=== PATIENT | female | born 1960 | race Caucasian/White ===

== ENCOUNTER 2021-08-29 05:09 | Observation (INO) ==
--- NOTE | 2021-08-03 14:33 | PAT Medication Instructions ---
Medication Instructions Date of Service August 03, 2021 Home Medications Medication Instructions Recorded buspirone 5 mg tablet 5 mg PO BID #180 tab 04/19/21 buspirone 5 mg tablet 5 mg PO BID duloxetine 60 mg capsule,delayed release 120 mg PO QAM losartan 100 mg tablet 100 mg PO QAM rosuvastatin 10 mg tablet (Crestor) 10 mg PO QAM DO NOT take the morning of surgery losartan 100 mg tablet 100 mg PO QAM Take morning of surgery With a small sip of water, OTHERWISE NOTHING TO EAT OR DRINK AFTER MIDNIGHT: buspirone 5 mg tablet 5 mg PO BID duloxetine 60 mg capsule,delayed release 120 mg PO QAM rosuvastatin 10 mg tablet (Crestor) 10 mg PO QAM Take evening before surgery buspirone 5 mg tablet 5 mg PO BID Other Notes If you have any questions please call us at [phone] or [phone] or [phone] or [phone]
--- NOTE | 2021-08-08 10:02 | Anesthesiology Consultation ---
Date of Service August 08, 2021 Assessment & Plan (1) Encounter for pre-operative examination: - COVID screening: Per assessment on 08/08: No known COVID-19 positive contacts or current COVID-19 related symptoms. Travel screen negative. Patient vaccinated. Surgeon arranging preop COVID testing. Awaiting results. - S/P Colonoscopy (12/30/20): MAC at [facility] - Patient acceptable risk for surgery pending surgeon-ordered PCP clearance (scheduled 08/10; [facility]). Chart Review Chart Review: Patient seen in Pre Admission Testing Teaching & Discussion Pre-Anesthesia Teaching/Discussion Notes: Instructed NPO after midnight before surgery,except medications with 15 cc of water. Medication instructions provided according to the PAT guidelines. History Surgery Operation Date: 08/29/21 07:00 Proposed Procedures p Right Total Knee Arthroplasty - Efra Sow MD Height/Weight Height: 5 ft 5 in Weight: 128.5 kg Allergies Allergy/AdvReac Type Severity Reaction Status Date / Time No Known Allergies Allergy Verified 08/03/21 12:51 Medications Home Medications Medication Instructions Recorded Confirmed Last Taken buspirone 5 mg tablet 5 mg PO BID #180 tab 04/19/21 08/03/21 Unknown duloxetine 60 mg capsule,delayed 120 mg PO QAM 08/03/21 08/03/21 Unknown release losartan 100 mg tablet 100 mg PO QAM 08/03/21 08/03/21 Unknown rosuvastatin 10 mg tablet (Crestor) 10 mg PO QAM 08/03/21 08/03/21 Unknown Past Medical History Medical History Anxiety and depression Dry eye syndrome GERD (gastroesophageal reflux disease) Hyperlipidemia Hypertension Morbid obesity with BMI of 45.0-49.9, adult Osteoarthritis Exercise / Class Metabolic Activity II 4-5 Yardwork/Stairs/Walk up hill (one FS (no CP, no SOB)) Past Family History Family History Father Family hx of colon cancer Other No family history of adverse response to anesthesia Past Surgical History Surgical History History of anesthesia reaction Awareness with remote colonoscopy History of cholecystectomy History of colonoscopy Colonoscopy (12/30/20): MAC at [facility] History of esophagogastroduodenoscopy (EGD) History of hysterectomy History of surgical procedure on eye proper using laser History of tonsillectomy and adenoidectomy History of tooth extraction History of total knee replacement LEFT Past Anesthesia History No Family Hx of Anesthesia Complications and Other (Awareness with remote colonoscopy) History of PONV No Hx of PONV and No Hx of Motion Sickness Social History Smoking Status: Never smoker Do You Dip or Chew Tobacco: No Hx Alcohol Use: Yes alcohol intake frequency: holidays/special occasions only Hx Substance Use: No substance use type: does not use Review of Systems Patient denies chest pain, shortness of breath, dyspnea on exertion, fever, chills, cough, wheezing, palpitations. Physical Exam Vital Signs VITALS BP 142/79 P 83 TEMP 98.9 SP02 96%RA RESP 16 PHYSICAL Full cervical extension range of motion. Full TMJ range of motion. TMD 3.5 finger breaths (difficult to palpate) Mallampati Score 4 (small oral opening) Dentition: intact Lungs: clear throughout to auscultation Cardiac: regular rate and rhythm, no murmurs noted Spine: normal Carotid arteries: negative bruit Extremities: no edema Short, thick neck Lab Results Anesthesia Preop Results Results Anesthesia Widget: WBC 6.84 K/uL (4.8-10.8) 08/08/21 Hgb 13.7 g/dL (12.0-16.0) 08/08/21 Hct 39.9 % (37-47) 08/08/21 Plt 198 K/uL (130-400) 08/08/21 Na 138 mmol/L (136-145) 08/08/21 K 4.0 mmol/L (3.5-5.1) 08/08/21 Cl 105 mmol/L (98-107) 08/08/21 CO2 27 mmol/L (21-32) 08/08/21 BUN 19 mg/dl (6-23) 08/08/21 Creat 0.76 mg/dl (0.6-1.2) 08/08/21 Glucose Level 86 mg/dl (70-99(Fasting)) 08/08/21 PT 10.3 Seconds (9.0-12.0) 08/08/21 PTT 25.7 Seconds (21.0-31.0) 08/08/21 INR 1.0 (0.9-1.1) 08/08/21 Blood Type O Positive 08/08/21 Antibody Screen NEGATIVE 08/08/21 Pre Admission Testing Addendum Electrocardiogram Date: 08/08/21 Findings: + NSR @ (76) Chest X-Ray Date: 08/08/21 Chart Review Patient seen in Pre Admission Testing Testing Electrocardiogram Date: 08/08/21 Findings: + NSR @ (76) Chest X-Ray Date: 08/08/21 FINDINGS: PA and lateral chest radiographs are compared to study dated 08/16/2018. The PA view is degraded by apical lordotic positioning. The cardiomediastinal silhouette is top normal for projection. The lungs and pleural spaces are clear. There is no pneumothorax. The skeletal structures appear osteopenic. The bony thorax appears intact. Cholecystectomy clips are noted in the right upper quadrant. IMPRESSION: No active disease in the chest.
[2021-08-29] MEDS ORDERED: LR 500ML BOLUS, THEN 15ML/HR IV SCH (06:00)
[2021-08-29] MEDS ORDERED: ROPIVACAINE 0.5% HCL/PF 150 MG, BUPIVACAINE 0.75% MPF 20 ML, EPINEPHrine 0.15 MG, Ketor... INFIL SCH (06:00)
[2021-08-29] MEDS ORDERED: cloNIDine HCL 0.1 MG/24 HR TRANSDERM SYS TD SCH (06:00)
[2021-08-29] MEDS ORDERED: LR 60ML/HR IV SCH (06:00)
[2021-08-29] MEDS ORDERED: oxyCODONE HCL 10 MG TABCR (OxyCONTIN) PO SCH (06:00)
[2021-08-29] MEDS ORDERED: TRANEXAMIC ACID 1,000 MG **IV Intra-op IV SCH (06:00)
[2021-08-29] MEDS ORDERED: dexAMETHasone 4 MG TAB PO SCH (06:00)
[2021-08-29] MEDS ORDERED: FAMOTIDINE 20 MG TAB PO SCH (06:00)
[2021-08-29] MEDS ORDERED: GABAPENTIN 600 MG DOSE PO SCH (06:00)
[2021-08-29] MEDS ORDERED: ACETAMINOPHEN 500 MG TAB PO SCH (06:00)
[2021-08-29] MEDS ORDERED: traMADol HCL 50 MG TABLET PO SCH (06:00)
[2021-08-29] MEDS ORDERED: METOCLOPRAMIDE HCL 10 MG TABLET PO SCH (06:00)
[2021-08-29] MEDS ORDERED: CeleBREX 200 MG CAP PO SCH (06:00)
[2021-08-29] MEDS ORDERED: TRANEXAMIC ACID 1,000 MG **IV Pre-op IV SCH (06:00)
[2021-08-29] MEDS ORDERED: BUPIVACAINE 0.5 % 5 MG/1 ML MPF 30ML VIAL ONE (06:26)
[2021-08-29] MEDS ORDERED: ROPIVACAINE 0.5% 5 MG/ML 30 ML VIAL ONE (06:26)
[2021-08-29] MEDS ORDERED: EPINEPHrine INJ 1 MG/ML AMP ONE (06:26)
[2021-08-29] MEDS ORDERED: ORTHO JOINT ANESTHETIC ONE (06:34)
[2021-08-29] MEDS ORDERED: fentaNYL citrate 100 MCG/2 ML VIAL ONE (06:46)
[2021-08-29] MEDS ORDERED: MIDAZOLAM HCL 1 MG/ML 2ML VIAL ONE (06:47)
[2021-08-29] MEDS ORDERED: PHENYLEPHRINE HCL 10 MG/ML VIAL ONE (06:48)
[2021-08-29] MEDS ORDERED: ePHEDrine sulfate 50 MG/ML AMP ONE (06:48)
--- NOTE | 2021-08-29 06:48 | History & Physical Bridge Note ---
Date of Service August 29, 2021 History & Physical Bridge Note I have examined the patient, reviewed the History & Physical and in the interval since the performance of the History & Physical I have noted the following changes of clinical significance: no changes noted
[2021-08-29] MEDS ORDERED: PROPOFOL IV EMULSION 10 MG/ML 20 ML VIAL IV ONE (07:58)
[2021-08-29] MEDS ORDERED: FLUMAZENIL 0.1 MG/1 ML 10 ML VIAL IV PRN (10:19)
[2021-08-29] MEDS ORDERED: ePHEDrine sulfate 50 MG/ML AMP IV PRN (10:19)
[2021-08-29] MEDS ORDERED: PROMETHAZINE HCL 12.5 MG in SODIUM CHLORIDE 0.9% 50 ML IV PRN (10:19)
[2021-08-29] MEDS ORDERED: ONDANSETRON INJ 2 MG/ML 2 ML VIAL IV PRN ×2 (10:19→11:56)
[2021-08-29] MEDS ORDERED: NALOXONE HCL 0.4 MG/1 ML VIAL/CARP IV PRN ×2 (10:19→11:56)
[2021-08-29] MEDS ORDERED: ATROPINE SULFATE 0.1 MG/ML 10ML SYR IV PRN (10:19)
--- NOTE | 2021-08-29 10:41 | Operative Report ---
Post Operative Report Pre & Post Diagnosis Operation Date: 08/29/21 07:00 Pre-Op Diagnosis: Right Knee Degenerative Joint Disease Post-Op Diagnosis: Right Knee Degenerative Joint Disease I identified the patient and participated in the time-out.: Yes Procedure Operation Date: 08/29/21 07:00 Actual Procedures p Right Total Knee Arthroplasty(Right) - Efra Sow MD Surgeon Jennifer Sow Drop Forger Adarsh Stovall MD. Caity SILVA Estimated Blood Loss 25 Findings Consistent with Post-Op Diagnosis Consistent with post op diagnosis Specimens No specimens Description of Procedure I participated in prepping dressing and assisted Dr. Sow during the procedure. Please see Dr. Sow note. I attest to the content of the Intraoperative Record and any orders documented therein. Any exceptions are noted below.
--- NOTE | 2021-08-29 10:43 | Operative Report ---
Post Operative Report Pre & Post Diagnosis Operation Date: 08/29/21 07:00 Pre-Op Diagnosis: Right Knee Degenerative Joint Disease Post-Op Diagnosis: Right Knee Degenerative Joint Disease I identified the patient and participated in the time-out.: Yes Procedure Operation Date: 08/29/21 07:00 Actual Procedures p Right Total Knee Arthroplasty(Right) - Efra Sow MD Surgeon Efra Sow MD Disability Specialist Sugey Allen physicians personal care assistant. Manny Stovall fellow. Estimated Blood Loss 25 Findings Consistent with Post-Op Diagnosis Specimens Resected bone and soft tissue Drains None Anesthesia Type MAC Spinal Regional Complications none Disposition Accompanied Patient To Recovery: No Disposition: Recovery Room Indications Joy is 61. She has right knee pain secondary to arthritis refractory to nonsurgical methods of management and she is elected to proceed with surgery. She is status post a successful surgery on the opposite limb. Description of Procedure Informed consent obtained. Patient identified. She identified the operative site as the right knee. I marked with my initials. A preoperative surgical timeout was performed. A preop dose of IV antibiotics was given. She was taken to the operating room positioned supine on the operating room table and the anesthetic had already been administered. A tourniquet was applied to the right thigh padded post under the right calf. A bump under the right hip. The leg was prescribed prepped and draped in usual sterile fashion. She had had a little cut underneath her little finger toenail from clipping her nails too short. She also had to 2 mm eschars over the junction of the middle and distal third of her leg possibly from her cat scratching her. These look like terminally healed scratches with minimal eschar no inflammation or erythema no drainage. I think it is reasonable to proceed as these will be excluded from the field and the looked benign in appearance. TXA given. DVT prophylaxis with impulse foot pumps and postoperatively Lovenox. Exam under anesthesia showed range of motion 0/7/approximate 115. She had trace MCL laxity and no LCL laxity except for mid position where she had 1+ LCL laxity. No effusion. Limb exsanguinated with the Esmarch. Tourniquet inflated 275 mmHg. A midline longitudinal incision was made of about 20 to 5 cm in length. Electrocautery was utilized down to subcutaneous tissues. The extensor mechanism was exposed and a small medial flap was elevated. A medial parapatellar arthrotomy was performed. Osteophytes throughout the knee were removed. There were grade 3 changes on the patella with osteophytes. Grade 4 changes in the medial compartment on both sides of the joint with large osteophytes which were removed. The medial meniscus was deficient. The lateral compartment looked normal. Cruciate ligaments were resected. The synovial reflection in the lateral gutter was divided. The retropatellar fat pad was resected and an extensile medial release was performed. Soft tissue on the anterior aspect the distal femur was excised. The knee was easily and carefully flexed and the tibia was subluxated. Digital Marketing Intern hole was drilled in front of the lateral tibial spine and intramedullary alignment myla was inserted. This was set to resect 10 mm off the lateral side corresponding to a 2 to 3 mm cut medially. This was pinned in the place. A 0 degree cutting block aligned with the tibial tubercle. The knee was placed into full extension and the alignment was assessed with the extra medullary alignment myla and found to be in slight valgus. I then used a 2 degree cutting block to correct this and reassess the alignment which showed good slope and the intersec tion of the second ray with bisection of the ankle joint on the longitudinal axis. This cut was then made carefully protecting the patellar tendon. The tibia was sized to a 3. A agricultural aircraft pilot hole was drilled in the distal femur followed by the insertion of the distal femoral cutting guide. This was set 7 degrees valgus based upon preoperative templating for the right knee and a 14 mm cut because of the preoperative flexion contracture. This cut was made protecting the collateral ligaments. Whitesides line and Atransipar condylar axis were marked out. The sizing block for the distal femur was applied and sized to a 3. The external rotation drill holes were made. The collateral ligaments were then protected and the size 3 anterior down cutting block was applied and the anterior posterior and chamfer cuts were then made. Osteophytes in the back the knee were removed. The extension gap was a symmetric 10 but the flexion gap was tight medially. I went ahead and did more posterior medial release releasing the semimobile member gnosis tendon and the gastroc as well as the posterior capsule and resecting posterior osteophytes and this allowed introduction of the size 10 spacer with a symmetrical flexion gap. The box cutting guide was applied lateralized pinned in place cut and rasped. The size 3 femur was applied. The tibia was prepared with the keel and punch followed by insertion of the 10 mm spacer. The knee was able to be fully extended and had no laxity to varus and valgus stress. There is no laxity at 90. And 30 degrees flexion there was no medial laxity but 1+ lateral laxity which was physiologic. The patella was measured to be 24 mm in thickness. A 38 patella was selected. The guide was set to preserve 16 mm of bone. The cutting guide was applied to cut was made. The patella was measured to be 15 mm in thickness. The paddle was distal lysed and medialized aligned with the trochlea and the lug holes were drilled. Patellar tracking was fine with no hands technique. The components removed from the knee and the canals were plugged. Ortho joint mix injected into the back the knee except for the area of the peroneal nerve. Copious irrigation was performed pulsatile lavage to prepare the bony surfaces. 2 bags of Simplex P cement were then mixed and then while in a doughy state the components were cemented into place femur tibia and patella. Smears were placed on the posterior condyles. The knee was held in full extension with a trial spacer until the cement hardened. The tourniquet was then let down at about 125 minutes. Meticulous hemostasis was performed. The rest of the Ortho joint mix was injected. The extraneous cement was removed. The after mentioned laxity profile applied and a 10 mm polywas selected for the final implant. The back the knee was inspected for cement. Previously osteophytes in the back of the knee were removed particularly medially. Bleeding was controlled with electrocautery. There was minimal bleeding. Some extraneous cement was removed. Irrigation was performed copiously and the final implant was inserted. Patellar thickness with the implant was 25 mm. Went ahead and closed the extensor mechanism with interrupted #2 FiberWire above the equator the patella and running and interrupted #1 Vicryl below. The skin was then closed in layers with 0 and 2-0 Vicryl with mari. The leg was c leaned wet and dry sponges. Soft sterile dressing was applied Xeroform 4 x 4's ABD soft wrap and a full-length Marcos wrap with a knee immobilizer. The patient was awakened from anesthesia without difficulty and taken to the recovery room in stable condition. The resected bone and soft tissue were sent for specimen. There were no complications. Counts were correct and blood loss is estimated to be 25 cc. At the conclusion the operation I spoke to patient's niece informed of my findings and discussed the postoperative plan. She will be admitted to the hospital. She will start Lovenox approximately 12 hours postop. Impulse foot pumps for DVT prophylaxis. Weightbearing as tolerated in rehab according to the total knee protocol. [place]ont assisted flexion with extensor mechanism closed was estimated to be 110 degrees. Components inserted were the [employer] PFC Sigma rotating platform knee size 3 posterior stabilized right femur with a size 310 mm thick polyethylene posterior stabilized implant a 38 mm 3 peg oval dome patella and a size 3 mobile-bearing keeled tibial tray. I attest to the content of the Intraoperative Record and any orders documented therein. Any exceptions are noted below.
[2021-08-29] MEDS ORDERED: hydrALAZINE HCL 20 MG/ML VIAL IV PRN (10:45)
[2021-08-29] MEDS: fentaNYL citrate 100 MCG/2 ML VIAL IV PRN ×2 (10:48→10:53)
--- NOTE | 2021-08-29 11:09 | Anesthesiology Progress Note ---
Date of Service August 29, 2021 Anesthesia Post Procedure Vital Signs Vital Signs: Temp Pulse Resp BP Pulse Ox 08/29/21 05:44 36.9 C 93 H 18 193/97 H 96 Pain Intensity Right Knee: Pain Intensity: 3 Transfer of Care Handoff Completed per policy Notes Mental Status: alert / awake / arousable Patient Amnestic to Procedure: Yes Nausea / Vomiting: adequately controlled Pain: adequately controlled Airway Patency, RR, SpO2: stable & adequate BP & HR: stable & adequate Hydration State: stable & adequate Neuraxial Anesthesia: was administered and sensory block is resolving Anesthetic Complications: no major complications apparent
--- NOTE | 2021-08-29 11:34 | XRay Report ---
XR knee RT 1 or 2V routine CLINICAL HISTORY: Surgical Post Op. Status post total knee replacement COMPARISON STUDY: 08/08/2021 TECHNIQUE: 2 right knee views FINDINGS: The patient is status post total knee replacement. The prosthetic components are in anatomi c alignment with no acute abnormality seen. Air is present within the soft tissues from the procedure . Skin mari are seen anteriorly. IMPRESSION: 1. Status post total knee replacement ACT 112: Negative or not required by law. Electronically signed by: Alessio Luo M.D. 08/29/2021 11:32 AM
[2021-08-29] MEDS ORDERED: bisacodyL 10 MG SUPP PR PRN (11:56)
[2021-08-29] MEDS ORDERED: diphenhydrAMINE 50 MG/ML VIAL IV PRN (11:56)
[2021-08-29] MEDS ORDERED: traMADol HCL 50 MG TABLET PO PRN (11:56)
[2021-08-29] MEDS ORDERED: HYDROmorphone INJ 1 MG/ML SYRINGE IV PRN (11:56)
[2021-08-29] MEDS ORDERED: METOCLOPRAMIDE HCL INJ 5 MG/ML 2 ML VIAL IV PRN (11:56)
[2021-08-29] MEDS ORDERED: HYDROmorphone INJ 0.5 MG/0.5 ML SYR IV PRN (11:56)
[2021-08-29] MEDS ORDERED: MAGNESIUM HYDROXIDE SUSP 30 ML UDC PO PRN (11:56)
[2021-08-29] MEDS ORDERED: diphenhydrAMINE Capsule 25 MG CAP PO PRN (11:56)
[2021-08-29] MEDS: CHECK CLONIDINE PATCH PLACEMENT SCH ×4 (12:03→23:19)
[2021-08-29] MEDS: SODIUM CHLORIDE 0.9% 1000ML 1,000 ML IV SCH ×2 (12:07→21:46)
[2021-08-29] MEDS: KETOROLAC 30 MG/ML VIAL IV SCH ×2 (15:01→21:46)
[2021-08-29] MEDS: ACETAMINOPHEN 500 MG TAB PO SCH ×2 (15:02→21:45)
[2021-08-29] MEDS: ceFAZolin 2000MG 2,000 MG/15 ML SYR IV SCH ×2 (15:02→23:18)
--- NOTE | 2021-08-29 17:18 | Orthopedic Progress Note ---
Date of Service August 29, 2021 Assessment & Plan (1) Status post total right knee replacement using cement: Plan: She may be out of bed as tolerated with assistance, with walker and knee immobilizer on right leg. ICe to right knee as needed for pain/swelling. Start Lovenox this evening for DVT prophylaxis. Also doing AV impulse boots and TEDS. Resumed regular home medications. PT/OT to start tomorrow. She's thinking she might need to stay an extra day. She is having some pain - discussed pain medication that is ordered. Keep dressings on right leg at all times. Will discuss findings with Dr. Chaves and re-eval in the AM. Case management for disposition needs. Admission and Anticipated Discharge Date Admission Date: August 29, 2021 Subjective Patient resting in bed, has some pain in right knee. States that Tramadol, Toradol and Tylenol don't seem to be "touching it". She has been out of bed to the bedside commode. She tolerated her lunch, she denies any nausea or vomiting. Denies any numbness or tingling to her right leg. Dressings intact. Physical Exam Musculoskeletal: Dressings intact right lower extremity. Strength 5/5. Distal N/V function normal. Distal pulses 1+. Able to bend her knee and do a straight leg raise. No calf tenderness. Results & Data ([facility]) Vital Signs (Past 12 Hours) Vital Signs Temp Pulse Resp BP Pulse Ox 08/29/21 14:57 36.7 C 89 16 120/73 95 08/29/21 13:48 100 H 16 130/79 95 08/29/21 12:45 36.8 C 98 H 16 142/63 H 96 08/29/21 12:08 36.5 C 85 17 155/75 H 97 08/29/21 11:45 36.9 C 90 17 132/76 96 08/29/21 11:35 90 21 143/76 H 95 08/29/21 11:25 36.3 C L 94 H 16 141/65 H 96 08/29/21 11:15 92 H 21 116/92 97 08/29/21 11:05 89 14 139/79 97 08/29/21 10:55 89 21 140/87 97 08/29/21 10:45 93 H 21 144/79 H 97 08/29/21 10:39 36.5 C 92 H 21 137/70 97 08/29/21 05:44 36.9 C 93 H 18 193/97 H 96 Diagnostic Findings XR knee RT 1 or 2V routine CLINICAL HISTORY: Surgical Post Op. Status post total knee replacement COMPARISON STUDY: 08/08/2021 TECHNIQUE: 2 right knee views FINDINGS: The patient is status post total knee replacement. The prosthetic components are in anatomic alignment with no acute abnormality seen. Air is present within the soft tissues from the procedure. Skin mari are seen anteriorly. IMPRESSION: 1. Status post total knee replacement
[2021-08-29] MEDS: SENNA 8.6 MG TAB PO SCH (20:04)
[2021-08-29] MEDS: DOCUSATE SODIUM 100 MG CAP PO SCH (20:04)
[2021-08-29] MEDS: busPIRone 5 MG TAB PO SCH (20:05)
[2021-08-29] MEDS: ENOXAPARIN INJ 30 MG/0.3 ML SYR SQ SCH (21:45)
[2021-08-29] MEDS: oxyCODONE HCL IR 5 MG TAB (IMMEDIATE RELEASE) PO PRN (21:52)
[2021-08-30] MEDS: KETOROLAC 30 MG/ML VIAL IV SCH ×2 (04:02→10:25)
[2021-08-30] MEDS: oxyCODONE HCL IR 5 MG TAB (IMMEDIATE RELEASE) PO PRN ×5 (04:15→23:32)
[2021-08-30] MEDS: ACETAMINOPHEN 500 MG TAB PO SCH ×3 (06:08→21:03)
[2021-08-30 07:23] LABS: BUN Creatinine Ratio 23.9 (10-20); Calcium 8.1 mg/dl (8.5-10.1); Creatinine Clr Calc Pharmacy 115.9 ml/min; Est GFR (African American) 108.4 ml/min; Est GFR (Non-African American) 93.5 ml/min; Potassium 3.9 mmol/L (3.5-5.1)
[2021-08-30] MEDS ORDERED: dexAMETHasone 4 MG TAB PO SCH (08:00)
[2021-08-30 08:11] LABS: Hemoglobin 10.2 g/dL (12.0-16.0); Mean Corpuscular Hemoglobin 30.5 pg (25-34); Mean Corpuscular Volume 89.8 fL (80-100); Mean Platelet Volume 9.7 fL (7.4-10.4); Platelet Count 178 K/uL (130-400); RDW Coefficient of Variation 13.3 % (11.5-14.5); RDW Standard Deviation 43.1 fL (36.4-46.3); Red Blood Count 3.34 M/uL (4.2-5.4); White Blood Count 8.37 K/uL (4.8-10.8)
[2021-08-30] MEDS: DOCUSATE SODIUM 100 MG CAP PO SCH ×2 (08:19→21:04)
[2021-08-30] MEDS: CHECK CLONIDINE PATCH PLACEMENT SCH ×3 (08:19→23:33)
[2021-08-30] MEDS: ROSUVASTATIN CALCIUM 10 MG TAB PO SCH (08:20)
[2021-08-30] MEDS: LOSARTAN POTASSIUM 50 MG TAB PO SCH (08:20)
[2021-08-30] MEDS: MULTIVITAMIN TAB PO SCH (08:20)
[2021-08-30] MEDS ORDERED: OXYBUTYNIN CHLORIDE XL 5 MG TABCR PO SCH (09:00)
[2021-08-30] MEDS: busPIRone 5 MG TAB PO SCH ×2 (10:23→21:04)
[2021-08-30] MEDS: ENOXAPARIN INJ 30 MG/0.3 ML SYR SQ SCH ×2 (10:24→21:04)
--- NOTE | 2021-08-30 12:46 | Orthopedic Progress Note ---
Date of Service August 30, 2021 Assessment & Plan (1) Status post total right knee replacement using cement: Plan: - Keep the dressing in place, clean and dry. - Elevate and ice the lower extremity - Continue pain control with Dilaudid and DVT prophylaxis with Lovenox 30 mg BID - Case management for disposition needs. - PT and OT - Next evaluation tomorrow morning before discharge Admission and Anticipated Discharge Date Admission Date: August 29, 2021 Subjective POD 1: Patient feels fine, she is sitting and she can bend her knee to 70 degree with no pain. She is ok with Dilaudid for pain control. After discuss with her she want to stay another night in the hospital. Physical Exam Musculoskeletal: Right lower extremity: Dressing in place, clean and dry. Neurovascular intact. ROM 0-70 with no pain. Results & Data ([facility]) Vital Signs (Past 12 Hours) Vital Signs Temp Pulse Resp BP Pulse Ox 08/30/21 08:15 36.5 C 83 18 137/77 92 08/30/21 04:14 36.4 C L 77 20 146/81 H 98 Laboratory Results 08/30/21 08/30/21 06:17 06:17 WBC 8.37 RBC 3.34 L Hgb 10.2 L Hct 30.0 L MCV 89.8 MCH 30.5 MCHC 34.0 RDW Std Deviation 43.1 RDW Coeff of Jay 13.3 Plt Count 178 MPV 9.7 Sodium 137 Potassium 3.9 Chloride 107 Carbon Dioxide 25 Anion Gap 5 BUN 16 Creatinine 0.67 Est Cr Clr Drug Dosing 115.9 Est GFR ( Amer) 108.4 Est GFR (Non-Af Amer) 93.5 BUN/Creatinine Ratio 23.9 H Glucose 111 H Calcium 8.1 L
--- NOTE | 2021-08-30 17:54 | Progress Notes ---
DATE OF SERVICE: 08/30/2021. The patient is resting comfortably in bed. No problems. We discussed discharge instructions in term s of therapy, wound care, Prevena, rest, elevation, icing. She will need some blood work. Pain medi cation Lovenox. Currently afebrile with stable vital signs. Dressing clean and dry. Distal neurova scular intact. 1+ posterior tibial. 5/5 ankle and toe plantar flexion, dorsiflexion, inversion and eversion strength. We will reassess tomorrow for suitability for discharge and apply a Prevena wound VAC. Labs noted. Job ID: [id number]
[2021-08-30] MEDS: SENNA 8.6 MG TAB PO SCH (21:04)
[2021-08-30] MEDS: CeleBREX 200 MG CAP PO SCH (21:05)
[2021-08-31] MEDS: oxyCODONE HCL IR 5 MG TAB (IMMEDIATE RELEASE) PO PRN ×2 (06:29→11:56)
[2021-08-31] MEDS: ACETAMINOPHEN 500 MG TAB PO SCH (06:30)
[2021-08-31] MEDS: CHECK CLONIDINE PATCH PLACEMENT SCH (07:40)
--- NOTE | 2021-08-31 09:06 | Orthopedic Progress Note ---
Date of Service August 31, 2021 Assessment & Plan (1) Status post total right knee replacement using cement: Plan: Patient's dressings were removed. Prevena wound VAC was placed. This will remain in place for a week. Follow-up in the office in 1 week for Ade vazquez. PT/OT today. Anticipate discharge to home today. Written discharge instructions will be provided. Prescriptions for oxycodone, tramadol, and Lovenox will be sent to her pharmacy. Admission and Anticipated Discharge Date Admission Date: August 29, 2021 Subjective Patient is seen in her room this morning. She has no current complaints. States her pain has been controlled with the narcotics. She feels that the alternating oxycodone and tramadol has been helpful. She feels ready for discharge to home. No other complaints. Review of Systems Review of Systems: Unchanged from yesterday. Physical Exam Physical Exam: General: Well-developed well-nourished middle-aged white female in no acute distress. Sitting in bed. Alert and oriented. Conversive. Skin: Warm and dry with good turgor. Postsurgical dressings are in place. Upon removal, mari are intact. Wound edges are well approximated. No erythema or or warmth. No active drainage. There is dried blood on her inner dressings. Expected postoperative edema. Musculoskeletal: Patient has intact motor function of her ankle and toes. She is unable to perform straight leg raise. She is able to set her quad. She has difficulty with active flexion. Neurologic: Gross sensation is intact across the right leg by soft touch. Peripheral pulses are 2+. Results & Data ([facility]) Vital Signs (Past 12 Hours) Vital Signs Temp Pulse Resp BP Pulse Ox 08/31/21 08:02 36.8 C 75 18 141/77 H 95 08/30/21 22:55 36.5 C 80 20 122/65 95
[2021-08-31] MEDS: ROSUVASTATIN CALCIUM 10 MG TAB PO SCH (09:53)
[2021-08-31] MEDS: LOSARTAN POTASSIUM 50 MG TAB PO SCH (09:53)
[2021-08-31] MEDS: DOCUSATE SODIUM 100 MG CAP PO SCH (09:53)
[2021-08-31] MEDS: MULTIVITAMIN TAB PO SCH (09:53)
[2021-08-31] MEDS: CeleBREX 200 MG CAP PO SCH (09:54)
[2021-08-31] MEDS: ENOXAPARIN INJ 30 MG/0.3 ML SYR SQ SCH (09:54)
[2021-08-31] MEDS: busPIRone 5 MG TAB PO SCH (09:54)
--- NOTE | 2021-08-31 15:36 | Discharge Summary ---
Date of Service August 31, 2021 Discharge Data Procedures Performed Operation Date: 08/29/21 07:00 Actual Procedures p Right Total Knee Arthroplasty(Right) - Efra Sow MD Hospital Course (1) Status post total right knee replacement using cement: Admitted to [facility] after undergoing an elective right total knee arthroplasty by Dr. Sow on August 29, 2021. Her surgery was performed with spinal anesthesia and peripheral nerve block. As well as IV sedation. She tolerated the procedure well without any intraoperative complications. She was given IV Ancef for surgical prophylaxis. She was allowed out of bed, weightbearing as tolerated right lower extremity with the assistance of a walker and knee immobilizer on her right knee. Postoperative x- rays were obtained in the recovery room which showed a stable prosthesis with no evidence of fractures. Her regular home medications were continued. She was given Tylenol, Toradol, tramadol, oxycodone and Dilaudid for pain control. She did have postoperative pain and required IV Dilaudid and oxycodone for it to be controlled. Her vital signs remained stable during her inpatient stay. She did tolerate a regular diet. She was seen and evaluated by physical therapy and Occupational Therapy while in the hospital. She did well out of bed and was deemed safe for discharge to her home. She was kept an extra night for pain control. On postoperative day 2 her dressings were changed and a Prevena wound VAC was applied to her and surgical incision. JUAN stockings were also applied. She was also placed on AV impulse boots, JUAN stockings and Lovenox for DVT prophylaxis. Home health arrangements had been made preoperatively. Her pain was well controlled on postoperative day 2 and she was ready for discharge. She was discharged to her home in stable condition with her on August 31, 2021. Discharge instructions were provided. All questions were answered. Pain medication and Lovenox was sent to her pharmacy.
== END 2021-08-31 13:18 | disposition home health service (06) ==
LOC: ASU 05:09 → 3E 05:09